=== PATIENT | female | born 1960 | race Caucasian/White ===

== ENCOUNTER → 2020-09-10 13:14 | Outpatient (CLI) | payer MEDICARE, SELFPAY ==
--- NOTE | 2020-09-10 13:37 | CT_ITS ---
STUDY: LOW DOSE CT LUNG CANCER SCREENING REASON FOR EXAM: Female, 59 years old. SMOKER X 30 YEARS. 1/2 PACK A DAY RADIATION DOSAGE (If Supplied By Facility): CTDIvol = ( 2.55 ) mGy, DLP = ( 75.31 ) mGycm TECHNIQUE: No contrast was administered. Low dose technique was utilized (average mAS-38 and kVp 120). 1.25 mm axial source images with a slice interval of 1.25-mm were reconstructed in lung windows. 2.5 mm axial source images with a slice interval of 2.5-mm were reconstructed in lung windows. 5.0 mm axial source images with a slice interval of 5.0-mm were reconstructed in soft tissue windows. Nodule measured using lung windows on PACS and/or independent workstation with automated measurement of minimum and maximum diameter. Nodule measurement reported as average diameter rounded to the nearest whole number. Growth is defined as an increase ins size of greater than 1.5 mm. COMPARISON: None. NODULES: There is a 1.9 cm x 1.4 cm x 2.2 cm pericardial nodule in the right upper lobe. This also evidence of a 1.1 cm x 1.1 cm nodule in the right suprahilar region of the right upper lobe. There is also evidence of focal infiltrate in the posterior aspect of the left upper lobe. Mild increased markings are seen at the lung bases and right middle lobe suggestive of scarring. Aorta: Atherosclerotic calcification. Coronary arteries: Prior CABG and aortic valve replacement. Heart: Not enlarged. Mediastinal nodes: Small mediastinal lymph nodes. Other chest and abdominal findings: CT/Low Dose CT Lung Screening IMPRESSION: Lung-RADS category 4B - Chest CT with or without contrast, PET/CT and/or tissue sampling can be obtained depending on the probability of malignancy and comorbidities. IMPORTANT NOTES FOR USE: ACR Lung-RADS Version 1.0 Assessment Categories Release Date: February 27, 2014 Category: Coded 0-4 bases on nodule(s) with highest degree of suspicion. Negative screen is defined as categories 1 and 2; a positive screen is defined as categories 3 and 4. Category 3 and 4A nodules that are unchanged on interval CT should be coded as category 2, and individuals returned to screening in 12 months. Category 4X: Category 3 or 4 nodules with additional imaging findings that increase the suspicion of lung cancer, such as spiculation, GGN that doubles in size in 1 year, enlarged lymph notes, etc. Category Modifiers: S (significant finding unrelated to lung cancer) and C (prior history of treated lung cancer) may be added to the 0-4 Lung-RADS Electronically Signed: Shaquille Fischer, at 15:09 EST , Service support ,
== END ==
PROVIDERS: PCP Nurse Practitioner Primary Care; Referring Provider Internal Medicine Pulmonary Disease; Visit Provider Internal Medicine Pulmonary Disease
DX: Z87.891 Personal history of nicotine dependence (principal); Z12.2 Encounter for screening for malignant neoplasm of respiratory organs
CPT/HCPCS: G0297

== ENCOUNTER → 2020-09-18 09:09 | Outpatient (CLI) | payer MEDICARE, MEDICAID, SELFPAY ==
--- NOTE | 2020-09-18 09:25 | RAD_ITS ---
STUDY: X-RAY CHEST REASON FOR EXAM: Female, 59 years old. COPD. Lung nodule. TECHNIQUE: PA and lateral views of the chest. COMPARISON: CT of the chest, 09/10/2020. FINDINGS: The lungs are well-expanded. There is linear densities in the left mid lung consistent with scarring. There is no new infiltrate or mass. There is no demonstrated pleural abnormality. There is evidence of cardiac valvuloplasty. The heart is normal in size. There is enlargement of the right hilum and lower mediastinum consistent with a soft tissue mass noted on the CT scan. Normal visualized pulmonary arteries. There is atherosclerotic calcification of the aortic arch with tortuosity. Normal visualized thoracic spine. Normal visualized ribs, clavicles, and shoulders. There is no demonstrated abnormality of the visualized soft tissue structures of the upper abdomen. RAD/Chest PA and Lateral IMPRESSION: 1. Right hilar prominence consistent with mass seen on CT scan. 2. Stable left perihilar linear scarring. 3. Evidence of cardiac valvuloplasty. Electronically Signed: Tray Mathew DO at 18:41 EST Tel [phone], Service support ,
[2020-09-18 09:39] LABS: Hematocrit 45.3 % (37-47); Mean Corp Hgb Conc 30.9 g/dL (32-36); Mean Corpuscular Hgb 30.4 pg (27.0-32.0); Mean Corpuscular Volume 98.5 fL (81-99); Mean Platelet Vol. 10.6 fl (6.2-12.0); Platelet Count 295 K/mm3 (150-450); RBC Distribution Width CV 14.8 % (11.6-14.6); RBC Distribution Width SD 53.3 fl (35.1-43.9); White Blood Count 15.7 K/mm3 (4.4-11.0)
== END ==
PROVIDERS: PCP Nurse Practitioner Primary Care; Referring Provider Internal Medicine Pulmonary Disease; Visit Provider Internal Medicine Pulmonary Disease
DX: J44.9 Chronic obstructive pulmonary disease, unspecified (principal); R91.1 Solitary pulmonary nodule
CPT/HCPCS: 36415; 71046; 85027

== ENCOUNTER → 2020-09-19 10:07 | Outpatient (CLI) | payer MEDICARE, SELFPAY ==
[2020-09-22 03:06] LABS: QNTFERON TB Mitogen Value > 10.00 IU/mL (.); QNTFERON TB Nil Value 0.02 IU/mL (.); QNTFERON TB1+ Ag Value 0.02 IU/mL (.); QNTFERON TB2+ Ag Value 0.02 IU/mL (.)
[2020-09-22 10:31] LABS: QNTIFERON TB Positive Criteria Negative (Negative)
== END ==
PROVIDERS: PCP Nurse Practitioner Primary Care; Referring Provider Internal Medicine Pulmonary Disease; Visit Provider Internal Medicine Pulmonary Disease
DX: R91.1 Solitary pulmonary nodule (principal)
CPT/HCPCS: 36415; 86480

== ENCOUNTER → 2020-10-02 16:03 | Outpatient (CLI) | payer MEDICARE, SELFPAY ==
[2014-09-12 09:09] VITALS: BMI 35.1
--- NOTE | 2020-10-02 16:05 | RAD_ITS ---
STUDY: X-RAY CHEST REASON FOR EXAM: Female, 59 years old. lung nodule TECHNIQUE: Frontal and lateral views of the chest. COMPARISON: CT scan of 09/10/2020, chest x-ray 09/18/2020. FINDINGS: As on the previous chest x-ray, ill-defined focal pulmonary opacity seen of the right upper lobe and prominence of the right hilum. Findings are once again consistent with a mass in the right upper lobe and probable mass retinopathy of the right hilum. Note that no change has occurred since the prior chest x-ray and CT scan is a far more accurate method to evaluate for this patient''s known masses. As on previous exams, biopsy is recommended. Linear areas of density across the mid and lower left lung with blunting of the left costophrenic angle are stable and suggestive of scarring. Heart size normal status post median sternotomy and prosthetic valves. Mild hyperexpansion of the lungs with flattening diaphragms. Exaggerated thoracic kyphosis. RAD/Chest PA and Lateral IMPRESSION: No change in the abnormal appearance of the right lung and hilum since previous chest x-ray and CT scan. This patient is known to have right upper lobe mass and right hilar mass or adenopathy and further evaluation should be performed with contrast CT scans which are far more accurate. Biopsy once again recommended. Electronically Signed: iNkos Andrea MD at 17:08 EST , Service support ,
== END ==
PROVIDERS: PCP Nurse Practitioner Primary Care; Referring Provider Internal Medicine Pulmonary Disease; Visit Provider Internal Medicine Pulmonary Disease
DX: R91.1 Solitary pulmonary nodule (principal)
CPT/HCPCS: 71046

== ENCOUNTER → 2021-01-29 | Outpatient (CLI) | payer MEDICARE, SELFPAY ==
[2021-01-29 13:13] LABS: International Normalized Ratio 2.6; Prothrombin Time (Protime)PT. 26.8 SECONDS (11.7-14.9)
== END | disposition home or self-care (01) ==
LOC: LABSPEC 12:57
PROVIDERS: PCP Nurse Practitioner Primary Care; Referring Provider Internal Medicine Hematology & Oncology; Visit Provider Internal Medicine Hematology & Oncology
DX: I35.2 Nonrheumatic aortic (valve) stenosis with insufficiency (principal); Z95.2 Presence of prosthetic heart valve; Z98.890 Other specified postprocedural states
CPT/HCPCS: 85610

== ENCOUNTER 2021-01-31 14:23 | Emergency (ER) | payer MEDICARE, MEDICAID, SELFPAY ==
[2021-01-31 14:24] VITALS: BP 139/67; PULSE 80; RESP 18; TEMP 36.6; O2SAT 95; BMI 29.9
[2021-01-31 14:35] VITALS: O2SAT 88
--- NOTE | 2021-01-31 14:41 | ED.VISSUMM ---
- ER Visit Summary Date of Service: 01/31/21 Chief Complaint: [Hemoptysis] History of Present Illness: The patient is a 60 F [presents to the emergency department with complaint of coughing up blood that started around 8 PM yesterday. Patient states that she had a little bit of intermittent blood-tinged sputum over the last weekend but she did not think much of it. Patient now passing small clots that are nickel sized. Patient was referred for evaluation by her oncologist. 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 Patient had her last chemotherapy yesterday. She denies any fevers. Patient has had her first Covid vaccine and has never had Covid. She describes some chest discomfort in the right side of her chest. Patient complains of some increased dyspnea especially with lying flat. 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 His last INR was 2.4 3 days ago.] Physical Examination: [HEENT-PERRLA, EOMI. Cranial nerves II through XII grossly intact. TMs clear. Mucous membranes moist. No adenopathy. Cardiovascular-regular rate and rhythm with 2 out of 6 systolic ejection murmur noted. Lungs-good aeration bilaterally. Patient has some coarse breath sounds bilaterally with some rales noted in both bases right greater than left. Mild tachypnea. No excess remote use or retractions. Abdomen-normoactive bowel sounds, soft, nontender, no rebound or rigidity, no peritoneal signs. Extremities-intact ?4, normal range of motion, normal pulses, atraumatic] Test Results: [CBC with differential obtained showed a white count of 6.4, hemoglobin 10.7, hematocrit 34, platelets 104. Chemistries showed a sodium 128, potassium 4.0, chloride 97, CO2 28, BUN 13 and creatinine 0.47. INR was 2.2. COVID-19 rapid test obtained was negative. Chest x-ray 1 view obtained interpreted by myself as increased markings bilateral lungs without evidence of pneumothorax. There is noted some fullness in the right hilum. Radiology read x-ray as increased markings right lower lobe as well as right upper lobe and left lower lobe as well as enlarged right mediastinum.] Emergency Department Course and Treatment: [The line established on arrival. Patient placed on a surveillance monitor. Case was discussed with Dr. Klein as well as with Dr. Treviño who recommended transferring patient to tertiary care center as there was concern of pulmonary hemorrhage from the site of her lung cancer and was felt patient may require embolization. I was asked to transfer patient to main [facility].] Case was discussed with who accepted transfer of patient to [facility]. Treatment Plan: [Transfer to [facility] for definitive to for treatment of her hemoptysis] Disposition: [Transfer] Impression: [Hemoptysis Coumadin coagulopathy Anemia Thrombocytopenia Small cell lung cancer] This note was generated with [employer] dictation software. It may contain incorrect words, spelling, and punctuation that were not noted in review of the chart prior to signing ED Disposition - Plan for ED Patient: Referrals: Heri Arthur BRANDING MACHINE OPERATOR, BRANDING MACHINE OPERATOR-C [Primary Care Provider] -
--- NOTE | 2021-01-31 14:59 | RAD_ITS ---
STUDY: X-RAY CHEST REASON FOR EXAM: Female, 60 years old. Worsening hemoptysis for 2 days. Patient is currently on chemotherapy. TECHNIQUE: Single AP portable view of the chest. COMPARISON: Comparison is made with prior study dated 10/02/2020. FINDINGS: EKG electrodes are seen. There is evidence of increased markings with areas of confluence in the right upper and right lower lobe as well as in the left lower lobe. Stable blunting of left costophrenic angle. Findings are suggestive of a early bilateral pulmonary infiltrates. Sternal cerclage wires are present from a prior sternotomy. Prior mitral valve replacement. Enlargement of the right side of the mediastinum as well as the right hilum most likely representing a mass. Normal visualized pulmonary arteries. There is atherosclerotic calcification of the aortic arch with tortuosity. There are diffuse degenerative changes of the visualized thoracic spine. Normal visualized ribs, clavicles, and shoulders. There is no demonstrated abnormality of the visualized soft tissue structures of the upper abdomen. RAD/Chest 1 View (Portable) IMPRESSION: Increased markings with areas of confluence in the right upper and right lower lobe as well as in the left lower lobe with stable blunting of the left costophrenic angle. Patchy bilateral infiltrates should be ruled out. Enlarged right mediastinum and right hilar region. Electronically Signed: Shaquille Fischer MD at 15:17 EDT , Service support ,
[2021-01-31 15:10] LABS: Absolute Lymphocyte Count 0.37 X10^3/uL (0.83-4.51); Absolute Neutrophil Count 5.7 X10^3/uL (2.0-7.7); Basophil# 0.04 X10^3/uL; Basophil% 0.6 % (0-1); Eosinophil# 0.01 X10^3/uL; Eosinophils% 0.2 % (0-5); Hematocrit 33.9 % (37-47); Hemoglobin 10.7 g/dL (12.0-15.0); Lymphocyte # 0.37 X10^3/ul (4.0); Lymphocyte % 5.8 % (19-41); Mean Corp Hgb Conc 31.6 g/dL (32-36); Mean Corpuscular Hgb 30.4 pg (27.0-32.0); Mean Corpuscular Volume 96.3 fL (81-99); Mean Platelet Vol. 10.3 fl (6.2-12.0); Monocyte# 0.08 X10^3/uL; Monocyte% 1.2 % (0-10); NRBC Flagged by Analyzer 0 % (0-5); Neutrophil # 5.72 X10^3/uL (2.7-7.7); Neutrophil % 89.1 % (47-70); POSITIVE DIFFERENTIAL YES; POSITIVE MORPHOLOGY YES; Platelet Count 104 K/mm3 (150-450); RBC Distribution Width CV 18.2 % (11.6-14.6); RBC Distribution Width SD 63.2 fl (35.1-43.9); Red Blood Count 3.52 M/mm3 (4.2-5.4); White Blood Count 6.4 K/mm3 (4.4-11.0)
[2021-01-31 15:11] LABS: Differential Indicated SCAN CRITERIA MET
--- NOTE | 2021-01-31 15:19 | NURSING ---
LACTIC ACID NEEDS REDRAWN, HEMOLIZED. LAB TO SEND NEW LABEL
[2021-01-31 15:20] LABS: Anion Gap 3 (5-15); BUN 13 mg/dL (7-18); BUN/Creat Ratio 27.5 RATIO (10-20); Calcium,Total 9.2 mg/dL (8.5-10.1); Chloride 97 mmol/L (98-107); Creatinine, Serum 0.47 mg/dL (0.55-1.02); EST Glomerular Filtration Rate 142 mL/min (>60); Est Glom Filt Rate - Afr Amer 172 mL/min (>60); Estimated Creatinine Clearance 99.42 ml/min; Glucose 147 mg/dL (74-106); Sodium Level 128 mmol/L (136-145)
[2021-01-31 15:30] LABS: International Normalized Ratio 2.2
[2021-01-31] MEDS: 0.9% Normal Saline 1,000 ML 150 ML IV (15:30)
[2021-01-31 15:47] VITALS: BP 136/62; PULSE 80; RESP 15; TEMP 36.6; O2SAT 94
[2021-01-31 15:54] LABS: Lactic Acid 1.1 mmol/L (0.4-1.9)
[2021-01-31 15:56] LABS: Platelet Estimate SLT DEC (ADEQ); Red Cell Morphology NORM C+C NORMAL (NORM C&C)
--- NOTE | 2021-01-31 15:56 | NURSING ---
CALLED [facility] TO START TRANSFER
--- NOTE | 2021-01-31 16:36 | NURSING ---
[facility] DR JANSEN FOR DR CHAVEZ
[2021-01-31 16:37] VITALS: BP 168/98; PULSE 75; RESP 16; TEMP 36.8; O2SAT 94
--- NOTE | 2021-01-31 16:47 | NURSING ---
ACCEPTED WAITING ON A BED
--- NOTE | 2021-01-31 17:36 | NURSING ---
[facility] BED 19 NURSE TO NURSE [phone]
--- NOTE | 2021-01-31 17:44 | NURSING ---
CALLED [facility], ETA IS 2 HR
[2021-01-31 17:55] VITALS: BP 108/50; PULSE 80; RESP 15; TEMP 36.6; O2SAT 96
--- NOTE | 2021-01-31 18:04 | ED.RN ---
first attemped made to call report. rn was busy. told they would call me back in 10 min. alisha jacobs rn [phone]
[2021-01-31] MEDS: Ondansetron 4 MG/2 ML Vial IV (18:20)
[2021-01-31] MEDS: Morphine 4 MG/ML Syringe IV (18:21)
[2021-01-31 18:42] VITALS: BP 132/49; PULSE 91; RESP 18; O2SAT 95
== END 2021-01-31 19:49 | disposition short-term general hospital (02) ==
PROVIDERS: Emergency Provider Emergency Medicine; PCP Nurse Practitioner Primary Care
DX: R04.2 Hemoptysis (principal); C34.90 Malignant neoplasm of unspecified part of unspecified bronchus or lung; D69.6 Thrombocytopenia, unspecified; D64.9 Anemia, unspecified; C79.51 Secondary malignant neoplasm of bone; C78.7 Secondary malignant neoplasm of liver and intrahepatic bile duct; C79.00 Secondary malignant neoplasm of unspecified kidney and renal pelvis; I11.0 Hypertensive heart disease with heart failure; I50.9 Heart failure, unspecified; E11.9 Type 2 diabetes mellitus without complications; J44.9 Chronic obstructive pulmonary disease, unspecified; Z79.01 Long term (current) use of anticoagulants; Z87.891 Personal history of nicotine dependence; Z79.51 Long term (current) use of inhaled steroids; Z79.84 Long term (current) use of oral hypoglycemic drugs; Z79.899 Other long term (current) drug therapy
CPT/HCPCS: 71045; 80048; 83605; 85025; 85610; 86850; 86900; 86901; 87426; 96361; 96374; 96375; 99285; J7030; A4216; J2405

== ENCOUNTER → 2021-02-22 | Outpatient (CLI) | payer MEDICARE, MEDICAID, SELFPAY ==
[2021-01-31 14:24] VITALS: BMI 29.9
[2021-02-22 16:31] LABS: International Normalized Ratio 2.3; Prothrombin Time (Protime)PT. 24.7 SECONDS (11.7-14.9)
== END | disposition home or self-care (01) ==
LOC: LABSPEC 15:10
PROVIDERS: PCP Nurse Practitioner Primary Care; Referring Provider Internal Medicine Hematology & Oncology; Visit Provider Internal Medicine Hematology & Oncology
DX: C34.90 Malignant neoplasm of unspecified part of unspecified bronchus or lung (principal); C78.7 Secondary malignant neoplasm of liver and intrahepatic bile duct; C79.51 Secondary malignant neoplasm of bone; Z95.2 Presence of prosthetic heart valve
CPT/HCPCS: 85610